=== PATIENT | female | born 1950 | race African-American/Black ===

== ENCOUNTER 2024-02-17 11:08 | Emergency (ER) | payer OTHER ==
[~2024-02-17] VITALS: Ht 165.1 cm; Wt 81.2 kg
[~2024-02-17 11:08] MED LIST: BENA20TA PO
[2024-02-17 11:12] VITALS: BP 129/69; PULSE 78; RESP 18; TEMP 97.3; O2SAT 99
[2024-02-17] MEDS: LIDOCAINE 5% 1 EA PATCH TP ONE (13:46)
[2024-02-17] MEDS: KETOROLAC 30 MG/ML VIAL IM ONE (13:47)
[2024-02-17] MEDS ORDERED: ACET-8905 PO (13:52)
[2024-02-17] MEDS ORDERED: LID5T TP (13:52)
== END 2024-02-17 14:05 | disposition home or self-care (01) ==
LOC: MED 11:08
DX: M54.16 Radiculopathy, lumbar region (principal); M54.50 Low back pain, unspecified; I10 Essential (primary) hypertension; Z79.899 Other long term (current) drug therapy
CPT/HCPCS: 73502; 96372; 99283; J1885